=== PATIENT | female | born 2000 | race Caucasian/White ===

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

== ENCOUNTER → 2020-03-14 | Outpatient (CLI) | payer BC ==
--- NOTE | 2020-03-15 15:52 | RAD ---
EXAM DESCRIPTION: Thoracic Spine w/Obliques CLINICAL HISTORY: PAIN IN THORACIC SPINE. M54.6 COMPARISON: None. TECHNIQUE: 4 views FINDINGS: The thoracic vertebral bodies are in good AP alignment. No fracturing is detected. The pedicles are intact. IMPRESSION: Normal thoracic spine. Electronically signed by: Johnie Nguyen MD 03/15/2020 3:51 PM CDT
--- NOTE | 2020-03-15 15:53 | RAD ---
EXAM DESCRIPTION: Lumbar Spine w/Obliques CLINICAL HISTORY: LOW BACK PAIN. M54.5 COMPARISON: None Available. TECHNIQUE: AP/lateral/ coned-down lateral/both obliques FINDINGS: Five view lumbar spine shows good alignment of the lumbar spine. There is no vertebral abnormality. The intervertebral disc space height is well-maintained. There are no abnormalities of the posterior elements demonstrated. IMPRESSION: Normal lumbar spine Electronically signed by: Johnie Nguyen MD 03/15/2020 3:51 PM CDT
== END ==
LOC: YCFC.O 15:46
PROVIDERS: ATTEND Family Medicine
DX: M54.5 Low back pain (principal); M54.6 Pain in thoracic spine; R23.3 Spontaneous ecchymoses; R11.2 Nausea with vomiting, unspecified; R10.9 Unspecified abdominal pain